=== PATIENT | male | born 1970 | race Hispanic/Latino ===

== ENCOUNTER 2020-07-26 12:12 | Emergency (ER) | payer BC ==
[~2020-07-26] VITALS: Ht 167.6 cm; Wt 83.9 kg
--- NOTE | 2020-07-26 13:31 | Emergency Department Note ---
History of Present Illnes History of Present Illness Chief Complaint: General Medicine Complaints History of Present Illness This is a 49 year old male with a past medical history significant for a head mass, undetermined who presents emergency department for episode of lightheadedness while at [facility]. Episode lasted only a few seconds, he did not pass out. He was supposed to have an MRI done for some kind of head mass, uncertain where this mass was located with sutures on the left side. Doesn't know if it was intracranial or extracranial. No other symptoms's time. Arrival Mode: [employer] Required: No Onset (how long ago): hour(s) Location: Generalized Quality: light headedness Radiation: Reports non-radiation Severity: mild Onset quality: sudden Duration (how long): hour(s) (seconds) Timing of current episode: rare Progression: resolved Chronicity: new Context: Denies recent illness, Denies recent surgery Relieving factors: none Exacerbating factors: none Associated symptoms: Reports denies other symptoms Treatments prior to arrival: none Past Medical/Family History Physician Review I have reviewed the patient's past medical and family history. Any updates have been documented here. Past Medical History Past Medical History: None Other Surgery: I&D of abscess to head Lipoma removal from back of head Social History Smoking Cessation: Never Smoker Counseling Performed: No Alcohol Use: Occasional Any Illegal Drug Use: No Other Any Pre-Existing Lines (PICC,: No Review of Systems Review of Systems Constitutional: Reports as per HPI EENTM: Reports no symptoms Cardiovascular: Reports no symptoms Respiratory: Reports no symptoms Gastrointestinal: Reports no symptoms Genitourinary: Reports no symptoms Musculoskeletal: Reports no symptoms Integumentary: Reports no symptoms Neurological: Reports no symptoms Psychological: Reports no symptoms Endocrine: Reports no symptoms Hematological/Lymphatic: Reports no symptoms Physical Exam Related Data Allergies: Coded Allergies: No Known Allergies (Unverified , 07/26/20) Triage Vital Signs Vital Signs Date Time Temp Pulse Resp B/P (MAP) Pulse Ox O2 Delivery O2 Flow Rate FiO2 07/26/20 12:26 98.4 76 16 131/90 100 Room Air Vital signs reviewed: Yes Physical Exam CONSTITUTIONAL Constitutional: Present well-developed, Present well-nourished HENT HENT: Present normocephalic, Present atraumatic, Present oropharynx clear/klaudia st, Present nose normal HENT L/R: Present left ext ear normal, Present right ext ear normal EYES Eyes: Reports PERRL, Reports conjunctivae normal NECK Neck: Present ROM normal PULMONARY Pulmonary: Present effort normal, Present breath sounds normal CARDIOVASCULAR Cardiovascular: Present regular rhythm, Present heart sounds normal, Present capillary refill normal, Present normal rate GASTROINTESTINAL Abdominal: Present soft, Present nontender, Present bowel sounds normal GENITOURINARY Genitourinary: Present exam deferred SKIN Skin: Present warm, Present dry MUSCULOSKELETAL Musculoskeletal: Present ROM normal NEUROLOGICAL Neurological: Present alert, Present oriented x 3, Present no gross motor or sensory deficits; Absent cranial nerve deficit, Absent sensory deficit, Absent abnormal coordination, Absent abnormal gait, Absent weakness PSYCHOLOGICAL Psychological: Present mood/affect normal, Present judgement normal Results Imaging Imaging results reviewed: Yes Diagnostics Tests Diagnostic test(s) reviewed: Yes Procedures 12 Lead ECG Interpretation ECG Interpretation : Date: Jul 26, 2020 Rhythm: sinus rhythm Rate: normal QRS axis: normal ST segments normal: Yes T waves normal: Yes Clinical Impression: normal ECG Assessment & Plan Medical Decision Making MDM 49-year-old male presents for lightheadedness after needing over and getting up [employer]. No syncope, cranial nerves II-12 are intact, no focal neurologic deficits. Examination is largely benign, vital signs stable, symmetrical limits. EKG is unremarkable. CT head obtained due to reported history of some kind of mass in or around his head CT scan shows no significant abnormalities. He is being followed for some soft tissue swelling by his doctor and has a scheduled MRI on Thursday. He will follow up this point and follow-up with his doctor. Do not suspect an emergent process this time patient is appropriate for discharge. Part of this note was dictated with Steve and is subject to recognition errors. Reassessment Reassessment time: 13:44 Reassessment Well appearing, NAD Assessment & Plan Final Impression: (1) Light headedness Depart Disposition: HOME, SELF-CARE Last Vital Signs Date Time Temp Pulse Resp B/P (MAP) Pulse Ox O2 Delivery O2 Flow Rate FiO2 07/26/20 12:52 74 17 127/87 100 07/26/20 12:26 98.4 Room Air MOE HELLER MD Jul 26, 2020 13:31
--- NOTE | 2020-07-26 13:33 | Diagnostic Imaging Report ---
EXAMINATION: Head CT HISTORY: 49-year-old male with dizziness and lightheadedness, headaches, mass in the left scalp COMPARISON: None. TECHNIQUE: Helical axial images of the head were obtained. Reformatted coronal and sagittal images from the axial data. Dose modulation, iterative reconstruction, and/or weight based adjustment of the mA/kV was utilized to reduce the radiation dose to as low as reasonably achievable. FINDINGS: Parenchyma: 1. No abnormal densities. 2. No mass or hemorrhage. No CT evidence of acute territorial vascular insult. Extra-axial spaces:No abnormal density. No extra-axial fluid collections Brain volume: Normal for age. Ventricles: No hydrocephalus or displacement. Arteries: No density suggestive of thrombus. Dural sinuses: No abnormal density. Foramen magnum: No mass, Chiari malformation, or basilar invagination. Sella: No obvious mass. Paranasal/mastoid sinuses: Imaged portions unremarkable. Skull/Scalp: No lytic or blastic lesions. No fractures. Nonspecific soft tissue density lesion in the right greater than left parietal occipital scalp, they may represent scar tissue, perhaps sequela from remote trauma, inflammatory or neoplastic in origin. IMPRESSION: 1. No intracranial mass, hemorrhage or infarcts. 2. Nonspecific soft tissue density lesions in the right greater than left left parieto-occipital scalp, dermatology consult is advised. Signed by: Dr. Concepción Zapata M.D. on 07/26/2020 1:30 PM
[2020-07-26 14:20] VITALS: BP 138/74
== END 2020-07-26 14:23 | disposition home or self-care (01) ==
LOC: ER 12:37
DX: R42 Dizziness and giddiness (principal)
CPT/HCPCS: 70450; 93005; 99283